=== PATIENT | female | born 1970 ===

== ENCOUNTER → 2021-10-11 11:25 | Outpatient (CLI) | payer OTHER, SELFPAY ==
--- NOTE | ~2021-10-11 | US_ITS ---
EXAMINATION: US pelvic complete w TV DATE: 10/11/2021 11:48 INDICATION: Endometrial hyperplasia, unspecified, Menopausal and female TECHNIQUE: Multiple transabdominal and endovaginal sonographic images of the pelvis were obtained. COMPARISON: None. FINDINGS: Uterus: 10.4 x 3.4 x 4.6 cm. Endometrial complex measures 0.5 cm. Right Ovary: Not visualized. No adnexal abnormality seen. Left Ovary: Not visualized. No adnexal abnormalities seen. There is no free fluid in the pelvis. IMPRESSION: Nonvisualization of the ovaries. Otherwise normal pelvic ultrasound findings. Reviewed, dictated and finalized at location K.
== END ==
PROVIDERS: PCP Nurse Practitioner Family; Visit Provider Nurse Practitioner Family
DX: N85.00 Endometrial hyperplasia, unspecified (principal); N95.1 Menopausal and female climacteric states
CPT/HCPCS: 76830; 76856